=== PATIENT | male | born 1980 | race American Indian/Alaskan Native ===

== ENCOUNTER 2019-07-29 14:41 | Emergency (ER) | payer OTHER ==
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
[2019-07-29 15:03] VITALS: BP 130/69
[2019-07-29] MEDS ORDERED: predniSONE 20 MG TAB PO ONE (15:57)
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
[2019-07-29] MEDS ORDERED: KETOROLAC 10 MG TAB PO ONE (16:57)
== END 2019-07-29 16:57 | disposition home or self-care (01) ==
LOC: ED 14:41
DX: M79.18 Myalgia, other site (principal); V89.2XXA Person injured in unspecified motor-vehicle accident, traffic, initial encounter; Y93.89 Activity, other specified; Y92.410 Unspecified street and highway as the place of occurrence of the external cause; Y99.8 Other external cause status
CPT/HCPCS: 99282; J7512